=== PATIENT | female | born 1960 | race Caucasian/White ===

== ENCOUNTER 2017-12-01 12:15 | Emergency (ER) | payer MEDICARE ==
[2017-12-01] MEDS ORDERED: Water For Inject, Bacteriostat 30 ML ONE (12:53)
[2017-12-01] MEDS ORDERED: methylPREDNISolone Sod Succ/PF 125 MG/2 ML VIAL ONE (12:53)
[2017-12-01] MEDS ORDERED: Metoclopramide HCl 10 MG/2 ML VIAL ONE (12:53)
[2017-12-01] MEDS ORDERED: Ketorolac Tromethamine 30 MG/ML VIAL ONE (12:53)
[2017-12-01] MEDS ORDERED: diphenhydrAMINE 50 MG/ML VIAL ONE (12:53)
[2017-12-01 13:08] LABS: #Basophils 0.1 thou/uL (0.0-0.2); #Eosinphils 0.1 thou/uL (0.0-0.7); #Lymphocytes 2.1 thou/uL (1.20-3.40); #Monocytes 1.3 thou/uL (0.11-0.59); #Neutrophils 10.5 thou/uL (1.40-6.50); %Basophils 0.8 % (0.0-1.0); %Eosinophils 0.7 % (0.0-10.0); %Monocytes 8.9 % (0.0-10.0); %Neutrophils 74.6 % (42.0-75.0); Hemoglobin 12.1 g/dL (12.0-16.0); Mean Corpuscular Hemoglobin 27.9 pg (27.0-31.0); Mean Corpuscular Volume 87.1 fL (78.0-98.0); Mean Platelet Volume 5.7 fL (7.4-10.4); Platelet Count 516 thou/uL (130-400); RBC Distribution Width 13.4 % (11.5-14.5); Red Blood Cell (RBC) Count 4.34 mill/uL (4.20-5.40); White Blood Cell (WBC) Count 14.1 thou/uL (4.8-10.8)
[2017-12-01 13:40] LABS: Anion Gap 16 mmol/L (10-20); BUN (Urea Nitrogen) 35 mg/dL (9.8-20.1); Calc. Creatinine Clearance 0 mL/min (70-130); Calcium 10.7 mg/dL (7.8-10.44); Carbon Dioxide 18 mmol/L (22-29); Chloride 110 mmol/L (98-107); Estimated GFR-MDRD 43; Glucose 111 mg/dL (70-105); Potassium 3.9 mmol/L (3.5-5.1); Sodium 140 mmol/L (136-145)
== END 2017-12-01 14:50 | disposition home or self-care (01) ==
LOC: SCSER 12:15
DX: R51 Headache (principal); Z79.899 Other long term (current) drug therapy
CPT/HCPCS: 80048; 85025; 96361; 96374; 96375; J1200; J1885; J2765; J2930

== ENCOUNTER 2018-01-10 11:22 | Outpatient (CLI) | payer MEDICARE ==
--- NOTE | 2018-01-10 13:56 | ULT ---
ABDOMINAL ULTRASOUND: HISTORY: Abnormal LFTs. History of polycystic liver disease, cholecystectomy, splenectomy, gastric bypass. FINDINGS: This exam is technically limited due to patient's body habitus. The gallbladder has been removed. T he common duct is in the 6 mm range. The liver has very heterogeneous echotexture. There are multip le cysts present. The largest measures 6.5 cm within the left lobe. Overall, the liver measures yen roximately 23 cm in length. I do not see any focal discrete solid mass. No spleen is identified con sistent with a history of a splenectomy. The right and left kidneys are within normal limits of size and not obstructed. The pancreas is partially obscured as are portions of the abdominal aorta and IVC. IMPRESSION: 1. Technically limited examination. 2. Multiple cysts within the liver with very heterogeneous echotexture o the liver without focal di screte masses. The liver also appears somewhat enlarged. 3. Postop cholecystectomy and splenectomy change. POS: [facility]
== END 2018-01-10 11:23 | disposition home or self-care (01) ==
LOC: SCSULT 11:22
PROVIDERS: ATTEND Internal Medicine Gastroenterology
DX: R74.8 Abnormal levels of other serum enzymes (principal); N39.0 Urinary tract infection, site not specified; R79.89 Other specified abnormal findings of blood chemistry; R23.9 Unspecified skin changes; K76.89 Other specified diseases of liver; R93.2 Abnormal findings on diagnostic imaging of liver and biliary tract; Z90.49 Acquired absence of other specified parts of digestive tract; Z90.81 Acquired absence of spleen
CPT/HCPCS: 76700

== ENCOUNTER 2018-04-24 18:40 | Emergency (ER) | payer MEDICARE ==
[2018-04-24 19:05] LABS: Bilirubin Small (Negative); Blood, Urine Negative (Negative); Clarity Hazy (Clear); Glucose, Urine (Dipstick) Negative (Negative); Leukocyte Small (Negative); Nitrite Negative (Negative); Protein, Urine (Dipstick) 30 mg/dL (Neg-Trace); Specific Gravity, Urine 1.025 (1.005-1.030); Urobilinogen 0.2 mg/dL (0.2-1.0)
[2018-04-24] MEDS ORDERED: Ketorolac Tromethamine 30 MG/ML VIAL ONE (19:08)
[2018-04-24 19:12] LABS: Bacteria/HPF 2+ HPF (None Seen); RBC/HPF 0-3 HPF (0-3)
--- NOTE | 2018-04-24 19:42 | RAD ---
CHEST TWO VIEWS: HISTORY: Cough. COMPARISON: 12/23/2011 FINDINGS: Heart size is within normal limits. There are postop sternotomy changes. The lungs show some linear scarring in the left base. No focal infiltrative process. A dorsal column stimulator is noted. IMPRESSION: No active intrathoracic disease. POS: [facility]
== END 2018-04-24 20:32 | disposition home or self-care (01) ==
LOC: SCSER 18:40
DX: N39.0 Urinary tract infection, site not specified (principal); G43.909 Migraine, unspecified, not intractable, without status migrainosus; Z79.899 Other long term (current) drug therapy
CPT/HCPCS: 71046; 81003; 81015; 87086; 94640; 96372; J1885; J7620

== ENCOUNTER 2018-05-09 13:06 | Outpatient (CLI) | payer MEDICARE ==
--- NOTE | 2018-05-09 14:58 | PET ---
DEMENTIA PET SCAN: HISTORY: Headache. Early onset Alzheimer's disease. FINDINGS: There is symmetric and physiologic uptake of radiotracer throughout each cerebral and cerebellar sarah sphere. The cingulate gyri are symmetric and within normal limits. Temporal and parietal lobes show a ppropriate uptake. Nondiagnostic CT attenuation correction images show no mass effect or shift of midline structures. Vi sualized paranasal sinuses remain well aerated. IMPRESSION: Normal F18 PET brain scan. POS: [facility]
== END 2018-05-09 13:07 | disposition home or self-care (01) ==
LOC: PET 13:06
PROVIDERS: ATTEND Psychiatry & Neurology Neurology
DX: G43.019 Migraine without aura, intractable, without status migrainosus (principal); G30.0 Alzheimer's disease with early onset
CPT/HCPCS: 78608; A9552

== ENCOUNTER 2019-01-02 10:43 | Outpatient (CLI) | payer MEDICARE ==
--- NOTE | 2019-01-02 13:21 | CT ---
CT Abdomen Pelvis W WO con: 01/02/2019 12:00 AM CLINICAL INFORMATION: Right lower quadrant abdominal pain COMPARISON: None. TECHNIQUE: Multiple contiguous axial images were obtained and a CT of the abdomen and pelvis without and with IV contrast. Oral contrast was administered. Coronal and sagittal reformats were performed. FINDINGS: Lower Chest: within normal limits. Abdomen: Liver: Innumerable scattered hypodensities representing cysts are seen. Bile Ducts: Normal caliber. Gallbladder: Absent Pancreas: within normal limits. Spleen: There are multiple splenules in the left upper quadrant of the abdomen. Adrenals: within normal limits. Kidneys: Small atrophic right kidney. Nonobstructing 3 mm right renal calcification. Pelvis: Reproductive Organs: Status post hysterectomy. Ureters: within normal limits. Bladder: within normal limits. Peritoneum: No ascites or free air, no fluid collection. Bowel: Normal caliber. Postsurgical changes in the stomach. The appendix is not definitely visualized . Mesentery and Retroperitoneum: No enlarged mesenteric or retroperitoneal lymph nodes. Vessels: Normal. Abdominal Wall: within normal limits. Bones: Degenerative changes in the spine. Postsurgical changes in the spine and sacroiliac joints. IMPRESSION: 1. Nonobstructing right renal calcification 2. Hepatic cysts 3. Small atrophic right kidney.
== END 2019-01-02 10:44 | disposition home or self-care (01) ==
LOC: CT 10:43
PROVIDERS: ATTEND Physician Assistant Medical
DX: K31.84 Gastroparesis (principal); R10.31 Right lower quadrant pain; K91.1 Postgastric surgery syndromes; R74.8 Abnormal levels of other serum enzymes; R13.10 Dysphagia, unspecified; Z12.11 Encounter for screening for malignant neoplasm of colon; N26.1 Atrophy of kidney (terminal); K76.89 Other specified diseases of liver; N28.89 Other specified disorders of kidney and ureter
CPT/HCPCS: 36415; 74178; 80053; 81001; 85025; 87086

== ENCOUNTER 2019-01-04 16:46 | Emergency (ER) | payer MEDICARE ==
[2019-01-04] MEDS ORDERED: Ketorolac Tromethamine 30 MG/ML VIAL ONE (18:31)
[2019-01-04] MEDS ORDERED: Morphine 4 MG/ML VIAL ONE (18:32)
[2019-01-04 18:43] LABS: #Basophils 0.1 thou/uL (0.0-0.2); #Eosinphils 0.5 thou/uL (0.0-0.7); #Lymphocytes 2.6 thou/uL (1.20-3.40); #Neutrophils 4.2 thou/uL (1.40-6.50); %Basophils 0.9 % (0.0-1.0); %Eosinophils 6.2 % (0.0-10.0); %Lymphocytes 30.8 % (21.0-51.0); %Monocytes 12.1 % (0.0-10.0); Hemoglobin 12.4 g/dL (12.0-16.0); Mean Corpuscular HGB CONC 31.2 g/dL (32.0-36.0); Mean Corpuscular Hemoglobin 29.8 pg (27.0-31.0); Mean Corpuscular Volume 95.6 fL (78.0-98.0); Mean Platelet Volume 6.6 fL (7.4-10.4); Platelet Count 421 thou/uL (130-400); RBC Distribution Width 11.5 % (11.5-14.5); Red Blood Cell (RBC) Count 4.16 mill/uL (4.20-5.40); White Blood Cell (WBC) Count 8.4 thou/uL (4.8-10.8)
[2019-01-04] MEDS ORDERED: Dexamethasone 4 MG TAB ONE (18:44)
[2019-01-04 19:04] LABS: ALT (SGPT) 14 U/L (8-55); AST (SGOT) 28 U/L (5-34); Albumin 4.1 g/dL (3.5-5.0); Alkaline Phosphatase 130 U/L (40-110); Anion Gap 14 mmol/L (10-20); BUN (Urea Nitrogen) 19 mg/dL (9.8-20.1); Bilirubin, Total 0.2 mg/dL (0.2-1.2); Calc. Creatinine Clearance 0 mL/min (70-130); Calcium 9.4 mg/dL (7.8-10.44); Carbon Dioxide 23 mmol/L (22-29); Chloride 104 mmol/L (98-107); Estimated GFR-MDRD 43; Globulin 3.4 g/dL (2.4-3.5); Glucose 104 mg/dL (70-105); Magnesium 1.9 mg/dL (1.6-2.6); Potassium 4.2 mmol/L (3.5-5.1); Protein, Total 7.5 g/dL (6.0-8.3); Sodium 137 mmol/L (136-145)
[2019-01-04] MEDS ORDERED: Lidocaine 1% w/Epinephrine 1:100K 20 ML VIAL ONE (19:12)
[2019-01-04 19:32] LABS: Bilirubin Negative (Negative); Blood, Urine Negative (Negative); Calcium Oxalate Crystals 2+ HPF (None Seen); Clarity Clear (Clear); Glucose, Urine (Dipstick) Normal (Negative); Leukocyte 75 Leu/uL (Negative); Nitrite Negative (Negative); Protein, Urine (Dipstick) 70 mg/dL (Neg-Trace); Urobilinogen Normal mg/dL (Less than 2)
[2019-01-04 19:37] LABS: Bacteria/HPF 1+ HPF (None Seen)
== END 2019-01-04 20:00 | disposition home or self-care (01) ==
LOC: ERS 16:46
DX: M62.830 Muscle spasm of back (principal); G43.909 Migraine, unspecified, not intractable, without status migrainosus; Z79.891 Long term (current) use of opiate analgesic
CPT/HCPCS: 36415; 80053; 81003; 81015; 83735; 85025; 96374; 96375; J1885; J2270; J8540